=== PATIENT | female | born 1995 | race Caucasian/White ===

== ENCOUNTER → 2019-02-06 | Outpatient (REF) | payer OTHER | LOC: M SFHCLERA 16:25 | PROVIDERS: ATTEND Nurse Practitioner Family | DX: N92.6 Irregular menstruation, unspecified (principal) | CPT/HCPCS: 81002; 81025; 84702; G0463 ==

== ENCOUNTER → 2019-05-02 | Outpatient (REF) | payer OTHER | LOC: M SFHCLERA 15:30 | PROVIDERS: ATTEND Nurse Practitioner Family | DX: R50.9 Fever, unspecified (principal) ==